=== PATIENT | female | born 1930 | race Caucasian/White ===

== ENCOUNTER 2017-05-10 08:38 | Day surgery (SDC) | payer MEDICARE, MEDICAID ==
[2017-05-10] VITALS (7 sets, daily range): BP systolic 92–166; BP diastolic 72–106; PULSE 60–65; TEMP 97.8
[~2017-05-10] VITALS: Ht 160 cm; Wt 90.2 kg
[2017-05-10] MEDS ORDERED: TYLENOL 500MG500 MG PO (09:18)
[2017-05-10] MEDS ORDERED: BENADRYL25 M2 PO (09:19)
[2017-05-10] MEDS ORDERED: ASPIRIN 81M81 MG/TA2 PO (09:19)
[2017-05-10] MEDS ORDERED: CATAPRES0.2 MG PO (09:21)
[2017-05-10] MEDS ORDERED: BIOTENE DRY M1000 ML MM (09:21)
[2017-05-10] MEDS ORDERED: COREG12.5 MG PO (09:22)
[2017-05-10] MEDS ORDERED: CARDIZEM CD 24240 MG PO (09:23)
[2017-05-10] MEDS ORDERED: DIOVAN 160MG160 MG PO (09:24)
[2017-05-10] MEDS ORDERED: DULCOLAX S10 MG/SUPP RC (09:24)
[2017-05-10] MEDS ORDERED: ROBITUSSIN100 MG/5 M PO (09:25)
[2017-05-10] MEDS ORDERED: KLOR-CON M2020 MEQ PO (09:26)
[2017-05-10] MEDS ORDERED: IMDUR 60MG60 MG/TAB PO (09:26)
[2017-05-10] MEDS ORDERED: SYNTHROID 0.0.025 MG PO (09:27)
[2017-05-10] MEDS ORDERED: LASIX 40MG TABL40 MG PO (09:27)
[2017-05-10] MEDS ORDERED: MAGNESIUM250 M1 PO (09:41)
[2017-05-10] MEDS ORDERED: MILK OF MA1200 MG/5 PO (09:43)
[2017-05-10] MEDS ORDERED: MIRALAX PA17 GM/Dose PO (09:44)
[2017-05-10] MEDS ORDERED: NYSTATIN POWDER15 GM TOP (09:44)
[2017-05-10] MEDS ORDERED: PRAVACHOL 40MG40 MG PO (09:45)
[2017-05-10] MEDS ORDERED: DITROPAN XL 5MG5 M1 PO (09:45)
[2017-05-10] MEDS ORDERED: ZOLOFT 25MG25 MG PO (09:47)
[2017-05-10] MEDS ORDERED: TINACTIN1% TP (09:48)
--- NOTE | 2017-05-10 10:57 | NUR ---
Patient to procedure,report to Irving Bardales.
--- NOTE | 2017-05-10 12:08 | NUR ---
Patient arrived to room 10,report from Irving Bardales.
[2017-05-10] MEDS ORDERED: CLEOCIN HCL300 MG PO (14:18)
--- NOTE | 2017-05-10 15:05 | NUR ---
Discharge instructions given to pt.pt verbalizes understanding.INT removed,catheter tip intact.
--- NOTE | 2017-05-10 15:14 | NUR ---
pt escorted out via wheelchair by this nurse.
--- NOTE | 2017-05-10 15:24 | NUR ---
REPORT CALLED TO [facility],SPOKE WITH NORIS GOEL.
== END 2017-05-10 15:27 ==
LOC: COL.CAR 08:38
DX: Z45.010 Encounter for checking and testing of cardiac pacemaker pulse generator [battery] (principal); I25.10 Atherosclerotic heart disease of native coronary artery without angina pectoris; I48.0 Paroxysmal atrial fibrillation; I10 Essential (primary) hypertension; E78.5 Hyperlipidemia, unspecified; I34.0 Nonrheumatic mitral (valve) insufficiency; I49.5 Sick sinus syndrome; I82.409 Acute embolism and thrombosis of unspecified deep veins of unspecified lower extremity
CPT/HCPCS: C1785; J2250; J3010; J3370; J7030; J7050